=== PATIENT | male | born 1955 | race Caucasian/White ===

== ENCOUNTER 2022-08-19 10:15 | Emergency (ER) | payer OTHER, BC | END 2022-08-19 12:07 | disposition home or self-care (01) | LOC: FB.ED 10:15 | DX: S16.1XXA Strain of muscle, fascia and tendon at neck level, initial encounter (principal); S43.402A Unspecified sprain of left shoulder joint, initial encounter; V63.5XXA Driver of heavy transport vehicle injured in collision with car, pick-up truck or van in traffic accident, initial encounter; Y92.410 Unspecified street and highway as the place of occurrence of the external cause | CPT/HCPCS: 72040; 73030-LT; 99283 ==